=== PATIENT | male | born 1955 | race Two or more races ===

== ENCOUNTER 2016-12-07 18:19 | Emergency (ER) | payer OTHER ==
[~2016-12-07] VITALS: Ht 195.6 cm; Wt 105.0 kg
[2016-12-07 20:03] VITALS: BP 164/85
== END 2016-12-07 22:00 ==
LOC: EME 18:19
DX: R45.1 Restlessness and agitation (principal); F43.24 Adjustment disorder with disturbance of conduct; G31.84 Mild cognitive impairment of uncertain or unknown etiology; G20 Parkinson's disease; I10 Essential (primary) hypertension; E11.9 Type 2 diabetes mellitus without complications; Z87.440 Personal history of urinary (tract) infections
CPT/HCPCS: 90839; 99281; 99285